=== PATIENT | male | born 1950 ===

== ENCOUNTER → 2025-04-05 06:49 | Outpatient (REF) | payer OTHER, SELFPAY | LOC: RCS 06:49 | PROVIDERS: ATTENDING PHYSICIAN Internal Medicine Cardiovascular Disease; FAMILY PHYSICIAN Internal Medicine | DX: I49.8 Other specified cardiac arrhythmias (principal); Z01.818 Encounter for other preprocedural examination | CPT/HCPCS: 78452; 93017; A9500; J2785 ==